=== PATIENT | female | born 1950 | race Caucasian/White ===

== ENCOUNTER 2023-07-20 13:02 | Observation (INO) | payer MEDICARE, OTHER ==
[~2023-07-20] VITALS: Ht 160 cm; Wt 44.2 kg
[2023-07-20] VITALS (48 sets, daily range): BP systolic 79–129; BP diastolic 55–79
[~2023-07-20 13:02] MED LIST: ADVAIR DISK1; ALPRAZOLAM0.25 MG PO; AMOX/K CLAV875 M1 PO; BENZONATATE200 MG PO; CIPROFLOXACN500 MG PO; LEVALBUTER1.25 MG/3 IN; LEVAQUIN750 MG PO; PREDNISONE10 MG PO; PREDNISONE20 MG PO; SINGULAIR10 MG PO; SOLU-MEDROL125 MG IM; SPIRIVA; TRELEGY ELLIPTA1 AER IN; XANAX0.25 MG PO; ZITHROMAX250 MG PO; ZITHROMAX500 MG PO
--- NOTE | 2023-07-20 13:05 | NUR ---
PT TO ROOM VIA EMS
[2023-07-20] MEDS ORDERED: methylPREDNISolone SODIUM SUCC 125 MG/2 ML SDV IV ONE (13:15)
[2023-07-20] MEDS ORDERED: IPRATROPIUM-Albuterol 0.5MG-2.5MG/3 ML NEB ONE (13:15)
--- NOTE | 2023-07-20 13:15 | NUR ---
PER EMS, PT WAS SOB SATING AT 89 O2 PRIOR TO NEB TREATMENT AND DEXAMETHAZONE. PT WEAR 2L NC AT HOME. UPON ARRIVAL TO [facility] PATIENT SATING 89 ON 3L. PULSE REMOVED FROM ACRYLIC NAIL AND APPLIED TO FORHEAD, PATIENT NOW 100O2 ON 2L NC.
--- NOTE | 2023-07-20 13:27 | NUR ---
RESPIRATORY IN ROOM WITH PATIENT FOR NEB TREATEMENT AND ABG. PT TOLERATING WELL.
--- NOTE | 2023-07-20 13:30 | NUR ---
THIS NURSE ASK MD ABOUT CALLING A SEPSIS ALERT. MD STATES NO. PTS BP: 89/60 RR:27 HR:112 O2:100 THIS NURSE STATES UNDERSTANDING. WILL CONTINUE TO MONITOR PATIENT AND MEDICATE ORDERED.
[2023-07-20] MEDS ORDERED: VANCOMYCIN HCL 1 GM in SODIUM CHLORIDE 0.9% 250 ML IV STA (13:35)
[2023-07-20] MEDS ORDERED: cefTRIAXone SODIUM 2 GM in SODIUM CHLORIDE 0.9% 100 ML IV STA (13:35)
[2023-07-20] MEDS ORDERED: SODIUM CHLORIDE 0.9% 1,000 ML BAG IV ONE (13:35)
--- NOTE | 2023-07-20 14:00 | NUR ---
pt changed after being incontinent of urine. pt and bed soaked in urine. pt cleaned. new linen provided. pt denies any further needs.
[2023-07-20 14:03] LABS: BASO% 0.1 % (0-3); EOS% 0.2 % (0-8); HEMATOCRIT 41.7 % (37.0-47.0); HEMOGLOBIN 13.6 g/dl (12.0-16.0); IMMATURE GRANULOCYTES 0.3 % (0.0-5.0); LYMPH% 9.2 % (15-41); MEAN CELL VOLUME 94.8 fL CALC (80.0-100.0); MEAN CORPUSCULAR HGB 30.9 pG CALC (26.0-32.0); MEAN CORPUSCULAR HGB CONC 32.6 g/dL CAL (32.0-36.0); MONO% 4.8 % (2-13); NEUT# 12.76 thou/uL (2.00-7.15); NEUT% 85.4 % (42-76); RED BLOOD COUNT 4.4 mill/uL (4.20-5.60); RED CELL DISTRI WIDTH 14.7 % (11.5-15.5)
[2023-07-20 14:19] LABS: BUN 23 mg/dL (8-23); BUN/CREATININE RATIO 38 (12-20 (CALC)); CARBON DIOXIDE 24 mmol/l (22-30); CREATININE 0.6 mg/dL (0.5-1.0); GFR FOR AFR.AMER. > 60 ML/MIN (>=60 (CALC)); GFR OTHER RACES > 60 ML/MIN (>=60 (CALC)); SODIUM 136 mmol/l (137-146); TOTAL PROTEIN 7.2 g/dL (6.3-8.2)
[2023-07-20 14:20] LABS: ALBUMIN 4.1 g/dL (3.2-5.0); ALKALINE PHOSPHATASE 82 u/l (38-126); ANION GAP 10 (6-22 (CALC)); BILIRUBIN, TOTAL 0.6 mg/dL (0.02-1.3); CHLORIDE 105 mmol/l (95-108); D-DIMER 0.62 mg/L (0.19-0.60); POTASSIUM 3.2 mmol/l (3.5-5.1); SGOT/AST 28 u/l (9-36)
--- NOTE | 2023-07-20 14:22 | NUR ---
PT RESTING IN BED. VSS. AT SIDE. PT DENIES ANY NEEDS AT THIS TIME.
[2023-07-20 14:26] LABS: PROTHROMBIN TIME 9.4 SECONDS (9.0-12.5)
--- NOTE | 2023-07-20 15:41 | NUR ---
PT RETURN FROM CT. PT HOOKED BACK UP TO MONITOR. FLUIDS RESUMED. AT BEDSIDE. PT EDUACTED ON WAIT TIME FOR CT. PT STATES UNDERSTANDING AND DENIES ANY NEEDS AT THIS TIME.
--- NOTE | 2023-07-20 15:45 | NUR ---
20ml of urine collected from [facility]. sample sent down to lab.
[2023-07-20 16:03] LABS: URINE BILIRUBIN - DIPSTICK Negative (NEGATIVE); URINE BLOOD DIPSTICK Negative (NEGATIVE); URINE COLOR Yellow; URINE GLUCOSE - DIPSTICK Negative (NEGATIVE); URINE KETONE Negative (NEGATIVE); URINE LEUK ESTERASE Negative (NEGATIVE); URINE NITRITE - DIPSTICK Negative (Negative); URINE PH 5.5 (4.5-8.0); URINE PROTEIN - DIPSTICK Negative (NEG-TRACE); URINE SPECIFIC GRAVITY 1.015; URINE UROBILINOGEN - DIPSTICK 0.2 E.U./dL (0.2)
[2023-07-20] MEDS ORDERED: PREDNISONE10 MG PO (16:34)
--- NOTE | 2023-07-20 17:05 | NUR ---
PT RESTING IN BED. VSS. HAS LEFT BEDSIDE. PT STATES SHE IS NORMALLY INDEPENDENT AT HOME AND WOULD LIKE TO USE BEDSIDE COMMODE. THIS NURSE STATES UNDERSTANDING. BEDSIDE COMMODE WILL BE PROVIDED.
[2023-07-20] MEDS ORDERED: ACETAMINOPHEN 325 MG/TAB PO PRN (17:35)
[2023-07-20] MEDS ORDERED: MAGNESIUM HYDROXIDE 30 ML UDC PO PRN (17:35)
[2023-07-20] MEDS ORDERED: SODIUM CHLORIDE 0.9% 1,000 ML IV PRN ×2 (17:35→23:45)
--- NOTE | 2023-07-20 18:14 | NUR ---
PT SITTING UP IN BED, EATING SUPER. PT DENIES ANY NEEDS AT THIS TIME.
[2023-07-20] MEDS ORDERED: IPRATROPIUM-Albuterol 0.5MG-2.5MG/3 ML NEB SCH (19:00)
--- NOTE | 2023-07-20 19:07 | NUR ---
PT RESTING IN BED. VSS. NO ACUTE DISTRESS NOTED. HAS LEFT BEDSIDE.
--- NOTE | 2023-07-20 19:37 | NUR ---
RECEIVED REPORT FROM ER NURSE. PT RESTING IN BED RECEIVING BREATHING TX. NO DISTRESS NOTED ON EXAM. CALL LIGHT WITHIN REACH. PLAN OF CARE ONGOING.
[2023-07-20] MEDS ORDERED: ENOXAPARIN SODIUM 40 MG/0.4 ML SYR SC SCH (21:00)
--- NOTE | 2023-07-20 23:30 | NUR ---
PT BP SOFT PROVIDOR NOTIFIED NEW ORDER RECEIVED. CHECK ORDERS.
[2023-07-20] MEDS ORDERED: POTASSIUM CHLORIDE 20 MEQ/TAB PO SCH (23:45)
[2023-07-20] MEDS ORDERED: SODIUM CHLORIDE 0.9% 500 ML IV PRN (23:45)
[2023-07-21] VITALS (10 sets, daily range): BP systolic 94–135; BP diastolic 62–81
--- NOTE | 2023-07-21 03:15 | NUR ---
RECEIVED REPORT FROM NURSE ED NURSE LAUREN, PATIENT TRANSPORTED VIA BED, PATIENT ALERT ORIEMTED ABLE EUFEMIA MAKE NEEDS MISSYW, ADMISSION ASSESSMENT COMPLTED O2 SAT 100% ON ROOM AIR, PATIENT ASSISTED TO THE BATHROOM VOIDED ASSISTED BACK IN BED, FEELS WEAK NEEDS 1 PERSON ASSIST, IV ON RFA G 2O EMS SITE AND LAC G 20 NS @ 150CC/HR INFUSING WELL, DENIES PAIN AT THIS TIME, CALLM ODILIA IN REACHED.
[2023-07-21 05:30] LABS: HEMATOCRIT 35.4 % (37.0-47.0); HEMOGLOBIN 11.4 g/dl (12.0-16.0); IMMATURE GRANULOCYTES 0.3 % (0.0-5.0); LYMPH% 6.3 % (15-41); MEAN CELL VOLUME 97.3 fL CALC (80.0-100.0); MEAN CORPUSCULAR HGB 31.3 pG CALC (26.0-32.0); MEAN CORPUSCULAR HGB CONC 32.2 g/dL CAL (32.0-36.0); MONO% 3.7 % (2-13); NEUT# 17.32 thou/uL (2.00-7.15); NEUT% 89.7 % (42-76); RED BLOOD COUNT 3.64 mill/uL (4.20-5.60); RED CELL DISTRI WIDTH 14.7 % (11.5-15.5)
[2023-07-21 05:46] LABS: ANION GAP 9 (6-22 (CALC)); BUN 14 mg/dL (8-23); BUN/CREATININE RATIO 29 (12-20 (CALC)); CARBON DIOXIDE 22 mmol/l (22-30); CHLORIDE 114 mmol/l (95-108); CREATININE 0.5 mg/dL (0.5-1.0); GFR FOR AFR.AMER. > 60 ML/MIN (>=60 (CALC)); GFR OTHER RACES > 60 ML/MIN (>=60 (CALC)); MAGNESIUM 1.9 mg/dL (1.6-2.3); SODIUM 141 mmol/l (137-146)
[2023-07-21 05:48] LABS: POTASSIUM 4.2 mmol/l (3.5-5.1)
[2023-07-21] MEDS ORDERED: methylPREDNISolone Sod Succ 40 MG/ML SDV IV SCH (06:00)
--- NOTE | 2023-07-21 08:00 | NUR ---
ST ON TELE, HR UP TO 130-150 NOTIFIED HERMINIA CASTORENA. PATIENT WAS UP TO BEDSIDE COMMODE AT THE TIME. VERY SHORT OF BREATH WITH ANY ACTIVITY. CALL LIGHT WITHIN REACH.
[2023-07-21] MEDS ORDERED: AZITHROMYCIN 500 MG in SODIUM CHLORIDE 0.9% 250 ML IV SCH (09:00)
[2023-07-21] MEDS ORDERED: MONTELUKAST SOD10 MG PO (09:04)
--- NOTE | 2023-07-21 10:23 | NUR ---
S: ELIOT TOUSSAINT is a 73 F who presents with multifocal pneumonia, chronic hypoxic respiratory failure, and exacerbation of COPD with hypoxia. Pt is on home oxygen therapy. She has a history of smoker, COPD, and emphysema. All medications in patient's chart were reviewed. O: VS: BP= 104/66 mmHg, P= 78 pulse/minute, RR= 18 breaths/mis, T= 97.1 F W= 46.2 kg, HT= 63 inches, Scr= 0.5 mg/dl ,CrCl= 37.1 ml/min A: Blood culture is pending. P: Patient is on ceftriaxone 1 g IV Q24H. Vancomycin ordered for pharmacy to dose. Start Vancomycin 750 mg IV Q24H. Vancomycin trough is drawn before the 4th dose on 07/24/23 @ 1030. Vancomycin goal trough is between 15-20 mcg/ml. Pharmacy will follow and or advise on antibiotics use as needed.
[2023-07-21] MEDS ORDERED: VANCOMYCIN HCL 750 MG in SODIUM CHLORIDE 0.9% 235 ML IV SCH (11:00)
[2023-07-21] MEDS ORDERED: TYLENOL500 MG PO (12:42)
[2023-07-21] MEDS ORDERED: [UNRECOGNIZED DRUG - OTHER] (12:43)
[2023-07-21] MEDS ORDERED: OSELTAMIVIR PHOSPHATE 75 MG/TAB CAP PO SCH (15:00)
[2023-07-21] MEDS ORDERED: MONTELUKAST SODIUM 10 MG/TAB PO SCH (15:00)
--- NOTE | 2023-07-21 20:00 | NUR ---
RECEIVED REPORT FROM NURSE VELÁZQUEZ PATIENT RESTING IN BED, PATIENT ON ROOM AIR, SPO2 @C 99-100% KORI NOTED CRACKLES AND NON PRODUCTIVE COUGH ON IV NS @ 150CC/HR, AFEBRILE, NOTIFIED IN HOME SALES CONSULTANT ABOUT LUNG SOUNDS, AND BP 107/68 ORDER TO DISCOMTINUE IV FLUIDS.
[2023-07-21] MEDS ORDERED: OSELTAMIVIR PHOSPHATE 30 MG/CAP PO SCH (21:00)
--- NOTE | 2023-07-22 | NUR ---
PATIENT RESTING IN BED, EYES CLOSED, BREATHING UNLABORED CALL LIGHT IN REACHEDD.
--- NOTE | 2023-07-22 04:00 | NUR ---
PATIENT RESTING IN BED,NOT IN DISTRESS, SPO2 AT 99-100% ON ROOM AIR, PATIENT REMAINS ON DROPLET ISOLATION FOR FLUA&b, CALL LIGHT IN REACHED.
[2023-07-22 05:06] VITALS: BP 119/80
[2023-07-22 05:11] LABS: BASO% 0.1 % (0-3); HEMATOCRIT 31.6 % (37.0-47.0); HEMOGLOBIN 10.2 g/dl (12.0-16.0); IMMATURE GRANULOCYTES 0.6 % (0.0-5.0); LYMPH% 5.1 % (15-41); MEAN CELL VOLUME 97.5 fL CALC (80.0-100.0); MEAN CORPUSCULAR HGB 31.5 pG CALC (26.0-32.0); MEAN CORPUSCULAR HGB CONC 32.3 g/dL CAL (32.0-36.0); MONO% 2.2 % (2-13); NEUT# 14.99 thou/uL (2.00-7.15); RED BLOOD COUNT 3.24 mill/uL (4.20-5.60); RED CELL DISTRI WIDTH 14.7 % (11.5-15.5)
[2023-07-22 05:41] LABS: ANION GAP 8 (6-22 (CALC)); BUN 13 mg/dL (8-23); BUN/CREATININE RATIO 26 (12-20 (CALC)); CARBON DIOXIDE 22 mmol/l (22-30); CHLORIDE 115 mmol/l (95-108); CREATININE 0.5 mg/dL (0.5-1.0); GFR FOR AFR.AMER. > 60 ML/MIN (>=60 (CALC)); GFR OTHER RACES > 60 ML/MIN (>=60 (CALC)); MAGNESIUM 2.2 mg/dL (1.6-2.3); POTASSIUM 3.7 mmol/l (3.5-5.1); SODIUM 141 mmol/l (137-146)
[2023-07-22 06:42] VITALS: BP 139/76
[2023-07-22 10:30] VITALS: BP 139/84
[2023-07-22] MEDS ORDERED: FUROSEMIDE 40 MG/4 ML SDV IV SCH ×2 (12:30→21:45)
[2023-07-22] MEDS ORDERED: POTASSIUM CHLORIDE 20 MEQ/TAB PO SCH (12:30)
[2023-07-22] MEDS ORDERED: GUAIFENESIN 600 MG/TAB PO SCH (12:30)
[2023-07-22 15:30] VITALS: BP 142/91
[2023-07-22 19:24] VITALS: BP 150/95
[2023-07-22 22:10] VITALS: BP 141/92
[2023-07-23 01:08] VITALS: BP 113/80
[2023-07-23 05:13] VITALS: BP 142/93
[2023-07-23 06:10] LABS: BASO% 0.1 % (0-3); IMMATURE GRANULOCYTES 1.2 % (0.0-5.0); LYMPH% 7.9 % (15-41); MEAN CELL VOLUME 95.5 fL CALC (80.0-100.0); MEAN CORPUSCULAR HGB 30.7 pG CALC (26.0-32.0); MEAN CORPUSCULAR HGB CONC 32.1 g/dL CAL (32.0-36.0); MONO% 2.6 % (2-13); NEUT# 9.43 thou/uL (2.00-7.15); NEUT% 88.2 % (42-76); RED BLOOD COUNT 3.98 mill/uL (4.20-5.60); RED CELL DISTRI WIDTH 14.3 % (11.5-15.5)
[2023-07-23 06:11] LABS: HEMOGLOBIN 12.2 g/dl (12.0-16.0)
[2023-07-23 06:31] LABS: BUN 20 mg/dL (8-23); BUN/CREATININE RATIO 30 (12-20 (CALC)); CHLORIDE 104 mmol/l (95-108); CREATININE 0.7 mg/dL (0.5-1.0); GFR FOR AFR.AMER. > 60 ML/MIN (>=60 (CALC)); GFR OTHER RACES > 60 ML/MIN (>=60 (CALC)); POTASSIUM 3.6 mmol/l (3.5-5.1); SODIUM 141 mmol/l (137-146)
[2023-07-23 06:34] LABS: ANION GAP 12 (6-22 (CALC)); CARBON DIOXIDE 29 mmol/l (22-30)
--- NOTE | 2023-07-23 08:00 | NUR ---
BEDSIDE SHIFT REPORT COMPLETED. DENIES NEED CURRENTLY. CALL LIGHT IN REACH. PUREWIK IN PLACE.
[2023-07-23] MEDS ORDERED: FUROSEMIDE 40 MG/4 ML SDV IV SCH (09:30)
[2023-07-23 10:41] VITALS: BP 146/94
[2023-07-23] MEDS ORDERED: POTASSIUM CHLORIDE 20 MEQ/TAB PO SCH (11:30)
--- NOTE | 2023-07-23 12:00 | NUR ---
DENIES ANY PAIN OR DISTRESS. IV ABT GIVEN ORDERED. SL IN RIGHT FA PATENT. PUREWIK IN PLACE DUE TO FREQUENT URINATION FROM LASIX. CONTINUES TO BE SHORT OF BREATH WITH EXPIRATORY WHEEZING. HAS DRY COUGH. STATES NOTHING EVER COMES UP. DAUGHTERS ON SPEAKER PHONE WHEN MD ROUNDED AND UPDATED ON CARE.
[2023-07-23 16:13] VITALS: BP 119/86
[2023-07-23 19:37] VITALS: BP 109/74
[2023-07-24] VITALS (7 sets, daily range): BP systolic 103–120; BP diastolic 74–88
[2023-07-24 07:26] LABS: BASO% 0.1 % (0-3); HEMATOCRIT 42.5 % (37.0-47.0); HEMOGLOBIN 13.9 g/dl (12.0-16.0); IMMATURE GRANULOCYTES 1.4 % (0.0-5.0); MEAN CELL VOLUME 93.4 fL CALC (80.0-100.0); MEAN CORPUSCULAR HGB 30.5 pG CALC (26.0-32.0); MEAN CORPUSCULAR HGB CONC 32.7 g/dL CAL (32.0-36.0); MONO% 4.3 % (2-13); NEUT# 7.01 thou/uL (2.00-7.15); NEUT% 81.2 % (42-76); RED BLOOD COUNT 4.55 mill/uL (4.20-5.60); RED CELL DISTRI WIDTH 14.1 % (11.5-15.5)
[2023-07-24] MEDS ORDERED: SODIUM CHLORIDE 0.9% 0 ML IV ONE (08:53)
[2023-07-24 08:57] LABS: ANION GAP 14 (6-22 (CALC)); BUN 30 mg/dL (8-23); BUN/CREATININE RATIO 42 (12-20 (CALC)); CARBON DIOXIDE 29 mmol/l (22-30); CHLORIDE 97 mmol/l (95-108); CREATININE 0.7 mg/dL (0.5-1.0); GFR FOR AFR.AMER. > 60 ML/MIN (>=60 (CALC)); GFR OTHER RACES > 60 ML/MIN (>=60 (CALC)); POTASSIUM 3.8 mmol/l (3.5-5.1); SODIUM 137 mmol/l (137-146)
[2023-07-24] MEDS ORDERED: SODIUM CHLORIDE 0.9% 1,000 ML IV SCH (09:45)
--- NOTE | 2023-07-24 11:59 | NUR ---
S: ELIOT TOUSSAINT is a 73 F who presents with multifocal pneumonia. She has a history of COPD, emphysema, former smoker. All medications in patient's chart were reviewed. O: VS: BP= 103/77 mmHg, P= 84 bpm, RR= 16 breaths/min, T= 97.7 F W= 46.2 kg, HT= 63 in, Scr= 0.7 mg/dL, CrCl= 37.1 ml/min Trough is at 7 ug/mL A: Nose culture pending. Blood culture shows no growth after 48 hour incubation. Trough is below the goal range P: Patient is on ceftriaxone 1g IV Q24H and azithromycin 500mg IV Q24H and vancomycin 750mg IV Q24H. Vancomycin ordered for pharmacy to dose. Increase to vancomycin 500 IV Q12H. Vancomycin trough is drawn before the 4th dose on 07/24/23 at 1200. Vancomycin goal trough is between 15-20 mcg/ml. Pharmacy will follow and or advise on antibiotics use as needed.
[2023-07-24] MEDS ORDERED: VANCOMYCIN HCL 500 MG in SODIUM CHLORIDE 0.9% 250 ML IV SCH (12:30)
--- NOTE | 2023-07-24 20:00 | NUR ---
RECEIVED REPORT FROM NURSE TONY, PATIENT RESTING IN BED, HOOKED ON O2 @ 1LPM VIA NC, SPO2 AT 93% STATED FEELS MUCH BETTER, PATINET REMAINS ON DROPLET ISOLATION R/T FLU, PATIENT ON PUREWICK, IV ON RFA G 20 PATENT FLUSHES WELL, CRACKLES NOTE DON RT LUNG BASE, PATIENT DENIES ANY PAIN AT THIS TIME, CALL LIGHT IN REACHED.
[2023-07-25 00:10] VITALS: BP 110/74
--- NOTE | 2023-07-25 00:30 | NUR ---
PATIENT RESTING IN BED REMAINS ON O2 @ 1LPM VIA NC, NOT IN DISTRESS, VANCO CURRENTLY INFUSING, CALL LIGHT IN REACHED.
--- NOTE | 2023-07-25 04:00 | NUR ---
KORI RESTING IN BED, REMAINS ON O2 @ 1LPM VIA NC NOT IN DSITRESS, CALL LIGHT IN REACHED.
[2023-07-25 04:19] VITALS: BP 112/73
[2023-07-25 05:45] LABS: ANION GAP 10 (6-22 (CALC)); BUN 36 mg/dL (8-23); BUN/CREATININE RATIO 44 (12-20 (CALC)); CARBON DIOXIDE 31 mmol/l (22-30); CHLORIDE 102 mmol/l (95-108); CREATININE 0.8 mg/dL (0.5-1.0); GFR FOR AFR.AMER. > 60 ML/MIN (>=60 (CALC)); GFR OTHER RACES > 60 ML/MIN (>=60 (CALC)); POTASSIUM 4.1 mmol/l (3.5-5.1); SODIUM 139 mmol/l (137-146)
[2023-07-25 05:46] LABS: BASO% 0.1 % (0-3); HEMATOCRIT 41.6 % (37.0-47.0); HEMOGLOBIN 13.2 g/dl (12.0-16.0); IMMATURE GRANULOCYTES 2.4 % (0.0-5.0); LYMPH% 13.7 % (15-41); MEAN CELL VOLUME 95.6 fL CALC (80.0-100.0); MEAN CORPUSCULAR HGB 30.3 pG CALC (26.0-32.0); MEAN CORPUSCULAR HGB CONC 31.7 g/dL CAL (32.0-36.0); MONO% 4.2 % (2-13); NEUT# 6.75 thou/uL (2.00-7.15); NEUT% 79.6 % (42-76); RED BLOOD COUNT 4.35 mill/uL (4.20-5.60); RED CELL DISTRI WIDTH 14.2 % (11.5-15.5)
--- NOTE | 2023-07-25 06:28 | NUR ---
patient is not wearing oxygen, breathing unlabored, spo2 at 94%.
[2023-07-25 07:09] VITALS: BP 112/79
[2023-07-25 10:51] VITALS: BP 105/74
[2023-07-25] MEDS ORDERED: PREDNISONE10 MG PO (13:05)
[2023-07-25] MEDS ORDERED: OMNICEF300 MG PO (13:06)
[2023-07-25] MEDS ORDERED: IPRATROPIU0.5 MG/3 M IN (13:06)
--- NOTE | 2023-07-25 15:15 | NUR ---
Discharge instructions given. Patient verbalizes understanding of same. Discharged in stable condition via Wheelchair to Home with family. All belongings sent with pt. IV discontinued, catheter intact, site WNL.
== END 2023-07-25 15:30 | disposition home health service (06) ==
LOC: ED 13:02 → ED-I 13:50 → ED 16:32 → ED-I 16:33 → MS2 21:33
PROVIDERS: Emergency Medicine; ADMIT Student in an Organized Health Care Education/Training Program; ATTEND Student in an Organized Health Care Education/Training Program
DX: J10.00 Influenza due to other identified influenza virus with unspecified type of pneumonia (principal); J44.1 Chronic obstructive pulmonary disease with (acute) exacerbation; J96.21 Acute and chronic respiratory failure with hypoxia; J44.0 Chronic obstructive pulmonary disease with (acute) lower respiratory infection; F41.1 Generalized anxiety disorder; Z87.891 Personal history of nicotine dependence; Z99.81 Dependence on supplemental oxygen; Z79.52 Long term (current) use of systemic steroids; Z87.01 Personal history of pneumonia (recurrent); Z20.822 Contact with and (suspected) exposure to COVID-19
CPT/HCPCS: J1650; J3370; Q9967

== ENCOUNTER 2024-07-29 11:04 | Emergency (ER) | payer MEDICARE, OTHER ==
[~2024-07-29] VITALS: Ht 160 cm; Wt 54.4 kg
[2024-07-29] VITALS (7 sets, daily range): BP systolic 114–136; BP diastolic 79–89
[~2024-07-29 11:04] MED LIST changes: +IPRATROPIU0.5 MG/3 M IN; +MONTELUKAST SOD10 MG PO; +OMNICEF300 MG PO; +TYLENOL500 MG PO; +[UNRECOGNIZED DRUG - OTHER]
[2024-07-29] MEDS ORDERED: EC-NAPROXEN500 MG PO (12:18)
[2024-07-29] MEDS ORDERED: TRAMADOL HYDROC50 M1 PO (12:18)
== END 2024-07-29 13:14 | disposition home or self-care (01) ==
LOC: ED 11:04
PROC: 2W39X1Z Immobilization of Left Upper Extremity using Splint (ICD-10-PCS; principal; 2024-07-29)
DX: S42.252A Displaced fracture of greater tuberosity of left humerus, initial encounter for closed fracture (principal); J43.9 Emphysema, unspecified; W18.49XA Other slipping, tripping and stumbling without falling, initial encounter; Z87.891 Personal history of nicotine dependence